=== PATIENT | male | born 2000 | race Caucasian/White ===

== ENCOUNTER 2018-01-10 09:55 | Emergency (ER) | payer OTHER ==
[~2018-01-10] VITALS: Ht 193 cm; Wt 69.9 kg
[2018-01-10 10:08] VITALS: BP 116/69
--- NOTE | 2018-01-10 10:23 | PHYS DOC ---
Past History Past Medical History: No Pertinent History Smoking: Non-smoker Alcohol Use: None Drug Use: None Adult General Chief Complaint Chief Complaint: UPPER EXTREMITY INJURY HPI HPI 17-year-old right-handed male patient state he was hit by a pitch in left forearm one week go while playing baseball and his pain is not getting better. Patient states he applied ice and took ibuprofen the first couple days and avoided of playing sports. Patient denies focal neuro deficit and other injuries. Review of Systems Review of Systems Constitutional: Denies fever or chills [] Eyes: Denies change in visual acuity, redness, or eye pain [] HENT: Denies nasal congestion or sore throat [] Respiratory: Denies cough or shortness of breath [] Cardiovascular: No additional information not addressed in HPI [] GI: Denies abdominal pain, nausea, vomiting, bloody stools or diarrhea [] : Denies dysuria or hematuria [] Musculoskeletal: Denies back pain or joint pain, reports extremity pain] Integument: Denies rash or skin lesions [] Neurologic: Denies headache, focal weakness or sensory changes [] Endocrine: Denies polyuria or polydipsia [] All other systems were reviewed and found to be within normal limits, except as documented in this note. Allergies Allergies Allergies Coded Allergies Type Severity Reaction Last Updated Verified No Known Drug Allergies 01/10/18 No Physical Exam Physical Exam Constitutional: Well developed, well nourished, no acute distress, non-toxic appearance. [] HENT: Normocephalic, atraumatic Eyes: PERRLA, EOMI, conjunctiva normal, no discharge. [] Neck: Normal range of motion, no tenderness, supple, no stridor. [] Cardiovascular:Heart rate regular rhythm, no murmur [] Lungs & Thorax: Bilateral breath sounds clear to auscultation [] Extremities: Mild tenderness in left radial shaft,no cyanosis, no clubbing, ROM intact, no edema, left forearm without deformity or tenderness or ecchymosis. [ ] Neurologic: Alert and oriented X 3, normal motor function, normal sensory function, no focal deficits noted. [] Psychologic: Affect normal, judgement normal, mood normal. [] EKG EKG [] Radiology/Procedures Radiology/Procedures ][address] [address] IMAGING REPORT Signed PATIENT: VALERI DECKER ACCOUNT: [id number] : 2000 LOCATION: ER AGE: 17 SEX: M EXAM STATUS: REG ER ORD. PHYSICIAN: DALIA COTE MD REASON: injury PROCEDURE: FOREARM LEFT AP and lateral left forearm radiographs 01/09/2018 CLINICAL HISTORY: Left forearm pain. The patient was struck in the left forearm one week ago with a baseball. AP and lateral digital radiographs of the left forearm were obtained. No fracture or dislocation of the left forearm is seen. No radiopaque foreign body is noted. Impression: No fracture or dislocation of the left forearm is seen. Electronically signed by: Chencho Gaston MD (01/10/2018 10:37 AM) [facility] DICTATED AND SIGNED BY: CHENCHO GASTON MD DATE: 01/10/18 1035 CC: RENAN MCLEOD MD; DALIA COTE MD ~ Course & Med Decision Making Course & Med Decision Making Pertinent Imaging studies reviewed. (See chart for details) []Evaluation of patient in ER showed 17-year-old male patient with injury to left forearm. Patient had tenderness of the shaft of radial and x-ray was reported the fracture but there was concern for possible greenstick fracture in midshaft radial. I discussed the different treatments options including CT of forearm but patient and his mother decided to have splint placement and follow up with procurement professional orthopedic physician. Patient had OCL splint placement by ER. Dragon Disclaimer Dragon Disclaimer This electronic medical record was generated, in whole or in part, using a voice recognition dictation system. Departure Departure: Impression: Primary Impression: Injury of forearm, left Disposition: 01 HOME, SELF-CARE (At 1125) Condition: IMPROVED Referrals: RENAN MCLEOD MD (PCP) Patient Instructions: Greenstick Fracture, Child Additional Instructions: Follow-up with Dr. Berumen in 2 or 3 days, please call [phone] to make an appointment Apply ice to affected area Return to ER if not getting better DALIA COTE MD Jan 10, 2018 10:23
--- NOTE | 2018-01-10 10:40 | RAD ---
AP and lateral left forearm radiographs 01/09/2018 CLINICAL HISTORY: Left forearm pain. The patient was struck in the left forearm one week ago with a baseball. AP and lateral digital radiographs of the left forearm were obtained. No fracture or dislocation of the left forearm is seen. No radiopaque foreign body is noted. Impression: No fracture or dislocation of the left forearm is seen. Electronically signed by: Chencho Gaston MD (01/10/2018 10:37 AM) [facility] [place]
== END 2018-01-10 11:30 | disposition home or self-care (01) ==
LOC: ER 09:55
DX: S59.912A Unspecified injury of left forearm, initial encounter (principal); X58.XXXA Exposure to other specified factors, initial encounter; Y93.64 Activity, baseball; Y99.8 Other external cause status; Y92.89 Other specified places as the place of occurrence of the external cause
CPT/HCPCS: 29125; 73090; 99284

== ENCOUNTER 2018-01-23 20:51 | Emergency (ER) | payer OTHER ==
[~2018-01-23] VITALS: Ht 193 cm; Wt 69.2 kg
[2018-01-23] MEDS ORDERED: IV NORMAL SALINE 1,000ML 1,000 ML IV ONE (21:15)
[2018-01-23 21:27] LABS: BASO # 0.1 x10^3/uL (0.0-0.2); BASO % 1 % (0-3); EOS % 0 % (0-3); HEMATOCRIT 44.2 % (39.0-53.0); HEMOGLOBIN 15.2 g/dL (13.0-17.5); LYMPH # 2.2 x10^3/uL (1.0-4.8); LYMPH % 18 % (24-48); MEAN CORPUSCULAR HEMOGLOBIN 30 pg (25-35); MEAN CORPUSCULAR HGB CONC 34 g/dL (31-37); MEAN CORPUSCULAR VOLUME 88 fL (79-100); MONO # 1.2 x10^3/uL (0.0-1.1); MONO % 10 % (0-9); NEUT # 8.9 x10^3uL (1.8-7.7); NEUT % 71 % (31-73); PLATELET COUNT 223 x10^3/uL (140-400); RED CELL DISTRIBUTION WIDTH 13.6 % (11.5-14.5); WHITE BLOOD COUNT 12.4 x10^3/uL (4.0-11.0)
[2018-01-23 21:37] LABS: CALCIUM 9.7 mg/dL (8.5-10.1); CREATININE 1.5 mg/dL (0.7-1.3); GFR 60.3; POTASSIUM 4.1 mmol/L (3.5-5.1)
--- NOTE | 2018-01-23 21:48 | PHYS DOC ---
Past History Past Medical History: No Pertinent History Past Surgical History: No Surgical History Smoking: Non-smoker Alcohol Use: None Drug Use: None Adult General Chief Complaint Chief Complaint: DEHYDRATION HPI HPI 17-year-old male presents with concern for acute injury. Patient has a headache , dizziness, and mild nausea. He was outside all day) for baseball games. He did drink a couple bottles of water and a bottle of Gatorade, but still developed symptoms. He admits to being a little bit confused earlier, but feels that his mentation is clear at this time. He has no other symptoms of illness. He has no other complaints. Review of Systems Review of Systems Constitutional: Denies fever or chills [] Eyes: Denies change in visual acuity, redness, or eye pain [] HENT: Denies nasal congestion or sore throat [] Respiratory: Denies cough or shortness of breath [] Cardiovascular: No additional information not addressed in HPI [] GI: Denies abdominal pain, nausea, vomiting, bloody stools or diarrhea [] : Denies dysuria or hematuria [] Musculoskeletal: Denies back pain or joint pain [] Integument: Denies rash or skin lesions [] Neurologic: headache, dizziness [] Endocrine: Denies polyuria or polydipsia [] All other systems were reviewed and found to be within normal limits, except as documented in this note. Current Medications Current Medications Current Medications Medications (Trade) Dose Ordered Sig/Eddie Start Time Stop Time Status Last Admin Dose Admin Sodium Chloride 1,000 ml @ 1,000 mls/hr 1X ONCE 01/23/18 21:15 01/23/18 22:14 01/23/18 21:15 1,000 MLS/HR Allergies Allergies Allergies Coded Allergies Type Severity Reaction Last Updated Verified No Known Drug Allergies 01/10/18 No Physical Exam Physical Exam Constitutional: Well developed, well nourished, no acute distress, non-toxic appearance. [] HENT: Normocephalic, atraumatic, bilateral external ears normal, oropharynx dry , no oral exudates, nose normal. [] Eyes: PERRLA, EOMI, conjunctiva normal, no discharge. [] Neck: Normal range of motion, no tenderness, supple, no stridor. [] Cardiovascular:Heart rate regular rhythm, no murmur [] Lungs & Thorax: Bilateral breath sounds clear to auscultation [] Abdomen: Bowel sounds normal, soft, no tenderness, no masses, no pulsatile masses. [] Skin: Warm, dry, no erythema, no rash. [] Back: No tenderness, no CVA tenderness. [] Extremities: No tenderness, no cyanosis, no clubbing, ROM intact, no edema. [] Neurologic: Alert and oriented X 3, normal motor function, normal sensory function, no focal deficits noted. [] Psychologic: Affect normal, judgement normal, mood normal. [] Current Patient Data Vital Signs Vital Signs Date Time Temp Pulse Resp B/P (MAP) Pulse Ox O2 Delivery O2 Flow Rate FiO2 01/23/18 20:51 98.5 93 16 98 Room Air Lab Results Laboratory Tests Test 01/23/18 21:09 White Blood Count 12.4 x10^3/uL (4.0-11.0) H Red Blood Count 5.00 x10^6/uL (4.30-5.70) Hemoglobin 15.2 g/dL (13.0-17.5) Hematocrit 44.2 % (39.0-53.0) Mean Corpuscular Volume 88 fL (79-100) Mean Corpuscular Hemoglobin 30 pg (25-35) Mean Corpuscular Hemoglobin Concent 34 g/dL (31-37) Red Cell Distribution Width 13.6 % (11.5-14.5) Platelet Count 223 x10^3/uL (140-400) Neutrophils (%) (Auto) 71 % (31-73) Lymphocytes (%) (Auto) 18 % (24-48) L Monocytes (%) (Auto) 10 % (0-9) H Eosinophils (%) (Auto) 0 % (0-3) Basophils (%) (Auto) 1 % (0-3) Neutrophils # (Auto) 8.9 x10^3uL (1.8-7.7) H Lymphocytes # (Auto) 2.2 x10^3/uL (1.0-4.8) Monocytes # (Auto) 1.2 x10^3/uL (0.0-1.1) H Eosinophils # (Auto) 0.0 x10^3/uL (0.0-0.7) Basophils # (Auto) 0.1 x10^3/uL (0.0-0.2) Sodium Level 136 mmol/L (136-145) Potassium Level 4.1 mmol/L (3.5-5.1) Chloride Level 101 mmol/L (98-107) Carbon Dioxide Level 30 mmol/L (21-32) Anion Gap 5 (6-14) L Blood Urea Nitrogen 22 mg/dL (8-26) Creatinine 1.5 mg/dL (0.7-1.3) H Estimated GFR (Cockcroft-Gault) 60.3 Glucose Level 106 mg/dL (70-99) H Calcium Level 9.7 mg/dL (8.5-10.1) EKG EKG [] Radiology/Procedures Radiology/Procedures [] Course & Med Decision Making Course & Med Decision Making Pertinent Labs and Imaging studies reviewed. (See chart for details) The patient's labs are significant for a slightly elevated creatinine of 1.5. I have given the patient 1 L of normal saline. He is feeling better overall. I have encouraged him to continue to drink water and fluids with electrolyte replacement; alternating between the 2 and drinking at least double what he drank today. His creatinine is likely to improve without further intervention. He is stable for discharge at this time. [] Dragon Disclaimer Dragon Disclaimer This electronic medical record was generated, in whole or in part, using a voice recognition dictation system. Departure Departure: Referrals: RENAN MCLEOD MD (PCP) ARA BALDERAS DO Jan 23, 2018 21:48
[2018-01-23 22:07] VITALS: BP 105/51
== END 2018-01-23 22:17 | disposition home or self-care (01) ==
LOC: ER 20:51
DX: R51 Headache (principal); R42 Dizziness and giddiness; R11.0 Nausea; R79.89 Other specified abnormal findings of blood chemistry; R41.0 Disorientation, unspecified
CPT/HCPCS: 36415; 80048; 85025; 99284; J7030

== ENCOUNTER 2018-06-19 20:23 | Emergency (ER) | payer OTHER ==
[~2018-06-19] VITALS: Ht 195.6 cm; Wt 68.0 kg
--- NOTE | 2018-06-19 20:49 | ED.ADGEN ---
Past History Past Medical History: No Pertinent History Past Surgical History: No Surgical History Smoking: Non-smoker Alcohol Use: None Drug Use: None Adult General Chief Complaint Chief Complaint ".. I hurt right here..." HPI HPI Patient is a 17 year old male who presents with upper abd. abd. wall pain x 2 days. Pt. denies any trauma. Patient denies any problems with passage of gas. Patient has been eating. Area appears to be a 1 cm bulge in the upper abdomen wall near the insertion of abdomen rectus muscles. Sitting up increases pain. No history of previous problems at the site of the abdomen. Patient normally healthy. Currently visiting at his home and plans to go back to college tomorrow. Up-to-date with vaccinations. Review of Systems Review of Systems Constitutional: Denies fever or chills [] Eyes: Denies change in visual acuity, redness, or eye pain [] HENT: Denies nasal congestion or sore throat [] Respiratory: Denies cough or shortness of breath [] Cardiovascular: No additional information not addressed in HPI [] GI: Complains of abdomen wall pain, denies nausea, vomiting, bloody stools or diarrhea [] : Denies dysuria or hematuria [] Musculoskeletal: Denies back pain or joint pain [] Integument: Denies rash or skin lesions [] Neurologic: Denies headache, focal weakness or sensory changes [] Endocrine: Denies polyuria or polydipsia [] All other systems were reviewed and found to be within normal limits, except as documented in this note. Family History Family History Noncontributory Current Medications Current Medications Current Medications Medications (Trade) Dose Ordered Sig/Eddie Start Time Stop Time Status Last Admin Dose Admin Famotidine (Pepcid) 20 mg 1X ONCE 06/19/18 21:30 06/19/18 21:31 DC 06/19/18 22:03 20 MG Fentanyl Citrate (Fentanyl 2ml Vial) 50 mcg 1X ONCE 06/19/18 21:30 06/19/18 21:31 DC 06/19/18 22:02 50 MCG Info (Do NOT chart on this entry -- for MONITORING) 1 each PRN DAILY PRN 06/19/18 21:15 06/19/18 23:31 DC Iohexol (Omnipaque 240 Mg/ml) 50 ml STK-MED ONCE 06/19/18 20:59 06/19/18 21:00 DC Iohexol (Omnipaque 300 Mg/ml) 75 ml 1X ONCE 06/19/18 21:30 06/19/18 21:31 DC 06/19/18 22:20 75 ML Ketorolac Tromethamine (Toradol 30mg Vial) 30 mg 1X ONCE 06/19/18 23:30 06/19/18 23:31 DC 06/19/18 23:21 30 MG Lactated Ringer's 1,000 ml @ 1,000 mls/hr Q1H 06/19/18 21:15 06/19/18 22:14 DC 06/19/18 21:56 1,000 MLS/HR Magnesium Hydroxide (Milk Of Magnesia) 2,400 mg 1X ONCE 06/19/18 23:30 06/19/18 23:31 DC 06/19/18 23:21 2,400 MG Ondansetron HCl (Zofran) 8 mg 1X ONCE 06/19/18 21:30 06/19/18 21:31 DC 06/19/18 21:59 8 MG Allergies Allergies Allergies Coded Allergies Type Severity Reaction Last Updated Verified No Known Drug Allergies 01/10/18 No Physical Exam Physical Exam Constitutional: Well developed, well nourished, moderate acute distress, non- toxic appearance. [] HENT: Normocephalic, atraumatic, bilateral external ears normal, oropharynx moist, no oral exudates, nose normal. [] Eyes: PERRLA, EOMI, conjunctiva normal, no discharge. [] Glasses Neck: Normal range of motion, no tenderness, supple, no stridor. [] Cardiovascular:Heart rate regular rhythm, no murmur [] Lungs & Thorax: Bilateral breath sounds clear to auscultation [] Abdomen: Bowel sounds normal, soft, no tenderness, no masses, no pulsatile masses. [] Findings as noted in history of present illness. Skin: Warm, dry, no erythema, no rash. [] Back: No tenderness, no CVA tenderness. [] Extremities: No tenderness, no cyanosis, no clubbing, ROM intact, no edema. [] Neurologic: Alert and oriented X 3, normal motor function, normal sensory function, no focal deficits noted. [] Psychologic: Affect normal, judgement normal, mood normal. [] Current Patient Data Vital Signs Vital Signs Date Time Temp Pulse Resp B/P (MAP) Pulse Ox O2 Delivery O2 Flow Rate FiO2 06/19/18 22:05 77 16 123/77 (92) 100 Room Air 06/19/18 20:35 98.2 Lab Results Laboratory Tests Test 06/19/18 21:28 06/19/18 21:50 Urine Collection Type Unknown Urine Color Straw Urine Clarity Clear Urine pH 7.0 Urine Specific [place] 1.010 Urine Protein Neg (NEG-TRACE) Urine Glucose (UA) Neg mg/dL (NEG) Urine Ketones (Stick) Neg mg/dL (NEG) Urine Blood Small (NEG) Urine Nitrite Neg (NEG) Urine Bilirubin Neg (NEG) Urine Urobilinogen Dipstick 0.2 mg/dL (0.2 mg/dL) Urine Leukocyte Esterase Neg (NEG) Urine RBC 1-2 /HPF (0-2) Urine WBC 0 /HPF (0-4) Urine Squamous Epithelial Cells Occ /LPF Urine Bacteria Few /HPF (0-FEW) White Blood Count 5.4 x10^3/uL (4.0-11.0) Red Blood Count 4.99 x10^6/uL (4.30-5.70) Hemoglobin 14.9 g/dL (13.0-17.5) Hematocrit 44.9 % (39.0-53.0) Mean Corpuscular Volume 90 fL (79-100) Mean Corpuscular Hemoglobin 30 pg (25-35) Mean Corpuscular Hemoglobin Concent 33 g/dL (31-37) Red Cell Distribution Width 13.3 % (11.5-14.5) Platelet Count 173 x10^3/uL (140-400) Neutrophils (%) (Auto) 47 % (31-73) Lymphocytes (%) (Auto) 36 % (24-48) Monocytes (%) (Auto) 14 % (0-9) H Eosinophils (%) (Auto) 2 % (0-3) Basophils (%) (Auto) 1 % (0-3) Neutrophils # (Auto) 2.5 x10^3uL (1.8-7.7) Lymphocytes # (Auto) 2.0 x10^3/uL (1.0-4.8) Monocytes # (Auto) 0.7 x10^3/uL (0.0-1.1) Eosinophils # (Auto) 0.1 x10^3/uL (0.0-0.7) Basophils # (Auto) 0.0 x10^3/uL (0.0-0.2) Prothrombin Time 10.3 SEC (9.4-11.4) Prothrombin Time INR 1.0 (0.9-1.1) PTT 30 SEC (23-33) Sodium Level 140 mmol/L (136-145) Potassium Level 3.9 mmol/L (3.5-5.1) Chloride Level 101 mmol/L (98-107) Carbon Dioxide Level 30 mmol/L (21-32) Anion Gap 9 (6-14) Blood Urea Nitrogen 16 mg/dL (8-26) Creatinine 1.0 mg/dL (0.7-1.3) Estimated GFR (Cockcroft-Gault) 96.3 Glucose Level 105 mg/dL (70-99) H Calcium Level 8.9 mg/dL (8.5-10.1) Total Bilirubin 0.7 mg/dL (0.2-1.0) Direct Bilirubin 0.1 mg/dL (0.0-0.2) Aspartate Amino Transferase (AST) 16 U/L (15-37) Alanine Aminotransferase (ALT) 19 U/L (16-63) Alkaline Phosphatase 88 U/L (46-116) Creatine Kinase 165 U/L (39-308) Troponin I Quantitative < 0.017 ng/mL (0-0.055) Total Protein 7.5 g/dL (6.4-8.2) Albumin 4.0 g/dL (3.4-5.0) Amylase Level 61 U/L (25-115) Lipase 162 U/L (73-393) EKG EKG [] Radiology/Procedures Radiology/Procedures Acute abdomen film shows no free air. Stool in colon. CT of abdomen shows no acute surgical processes[] Course & Med Decision Making Course & Med Decision Making Pertinent Labs and Imaging studies reviewed. (See chart for details). Clear fluid diet for the next 2 days. Tylenol and ibuprofen for pain. Consider surgical consult. Return if any concerns. Patient issued a disc of the CT and a copy of the labs in the event that site becomes more tender and need surgical consult. [] Final Impression Final Impression 1. Abd.pain[] 2. Suspect- small hernia or muscle tear at upper insertion of abdomen rectus muscles Dragon Disclaimer Dragon Disclaimer This electronic medical record was generated, in whole or in part, using a voice recognition dictation system. OSVALDO ESTEVES MD Jun 19, 2018 20:49
[2018-06-19] MEDS ORDERED: IOHEXOL 240 MG/ML 50ML VIAL. ONE (20:59)
[2018-06-19] MEDS ORDERED: IV RINGERS SOLUTION,LACTATED 1,000 ML IV SCH (21:15)
[2018-06-19] MEDS ORDERED: CONTRAST GIVEN MC PRN (21:15)
[2018-06-19] MEDS ORDERED: FAMOTIDINE 20 MG TABLET PO ONE (21:30)
[2018-06-19] MEDS ORDERED: ONDANSETRON PF 4 MG/2 ML VIAL. IV ONE (21:30)
[2018-06-19] MEDS ORDERED: IOHEXOL 300 MG/ML 75 ML VIAL. IV ONE (21:30)
[2018-06-19 22:05] VITALS: BP 123/77
[2018-06-19 22:05] LABS: BASO % 1 % (0-3); EOS # 0.1 x10^3/uL (0.0-0.7); EOS % 2 % (0-3); HEMATOCRIT 44.9 % (39.0-53.0); HEMOGLOBIN 14.9 g/dL (13.0-17.5); LYMPH % 36 % (24-48); MEAN CORPUSCULAR HEMOGLOBIN 30 pg (25-35); MEAN CORPUSCULAR HGB CONC 33 g/dL (31-37); MEAN CORPUSCULAR VOLUME 90 fL (79-100); MONO # 0.7 x10^3/uL (0.0-1.1); MONO % 14 % (0-9); NEUT # 2.5 x10^3uL (1.8-7.7); NEUT % 47 % (31-73); PLATELET COUNT 173 x10^3/uL (140-400); RED BLOOD COUNT 4.99 x10^6/uL (4.30-5.70); RED CELL DISTRIBUTION WIDTH 13.3 % (11.5-14.5); WHITE BLOOD COUNT 5.4 x10^3/uL (4.0-11.0)
[2018-06-19 22:12] LABS: BACTERIA,URINE FEW /HPF (0-FEW); BILIRUBIN,URINE NEG (NEG); CLARITY,URINE CLEAR; COLOR,URINE STRAW; GLUCOSE,URINE NEG (NEG); NITRITE,URINE NEG (NEG); SQUAMOUS EPITHELIAL CELL,UR OCC /LPF; UROBILINOGEN,URINE 0.2 mg/dL (0.2 mg/dL); WBC,URINE 0 /HPF (0-4)
--- NOTE | 2018-06-19 22:25 | RAD ---
Acute abdomen series. History: Abdominal pain. Comparison: None. Findings: Frontal chest radiograph. Cardiac silhouette appears within normal limits for size. No pneumoperitoneum, pneumothorax, or large pleural effusion seen. No focal infiltrate is identified. There are 12 well-formed pairs of ribs. Supine and upright AP views of the abdomen. Bowel gas pattern is nonspecific, without evidence of small bowel obstruction. No calcifications are seen over either renal shadow. Mild-moderate colonic stool is seen. Impression: No acute abnormality identified in the chest or abdomen. Electronically signed by: Jose Mclean MD (06/19/2018 10:21 PM) [id number]
[2018-06-19 22:29] LABS: CALCIUM 8.9 mg/dL (8.5-10.1); DIRECT BILIRUBIN 0.1 mg/dL (0.0-0.2); GFR 96.3; POTASSIUM 3.9 mmol/L (3.5-5.1); TOTAL BILIRUBIN 0.7 mg/dL (0.2-1.0); TOTAL PROTEIN 7.5 g/dL (6.4-8.2)
--- NOTE | 2018-06-19 22:43 | RAD ---
CT Abdomen and Pelvis With Intravenous Contrast: History: Epigastric abdominal pain with noticeable bump. Possible hernia. Nausea. Comparison: CT abdomen pelvis March 27, 2009. Technique: After administration of oral and intravenous contrast, 75 mL Omnipaque-300, CT of the abdomen and pelvis was performed. Exposure: One or more of the following individualized dose reduction techniques were utilized for this examination: 1. Automated exposure control 2. Adjustment of the mA and/or kV according to patient size 3. Use of iterative reconstruction technique Findings: Liver, spleen, pancreas, gallbladder, and bilateral adrenal glands are unremarkable. Bilateral kidneys enhance symmetrically. No bowel obstruction is identified. Appendix is without evidence of inflammation. Moderate colonic stool is seen. Urinary bladder is distended, but otherwise unremarkable. No free air is identified. There is a trace amount of free fluid present in the pouch of [place], abnormal in a male; source is not identified. There is no evidence of umbilical or inguinal hernia. Impression: 1. Trace free fluid in the pelvis, abnormal in a male. Cause is not identified. 2. Otherwise, unremarkable CT of the abdomen and pelvis. Electronically signed by: Jose Mclean MD (06/19/2018 10:40 PM) [id number]
[2018-06-19] MEDS ORDERED: KETOROLAC 30 MG/ML VIAL. IV ONE (23:30)
[2018-06-19] MEDS ORDERED: MAGNESIUM HYDROXIDE 2,400 MG/30 ML ORAL.SUSP. PO ONE (23:30)
== END 2018-06-19 23:20 | disposition home or self-care (01) ==
LOC: ER 20:23
DX: R10.10 Upper abdominal pain, unspecified (principal); R10.13 Epigastric pain
CPT/HCPCS: 36415; 74022; 74177; 80048; 80076; 81001; 82150; 82550; 83690; 84484; 85025; 85610; 85730; 96374; 96375; 99284; J1885; J2405; J3010; J7120; Q9967